=== PATIENT | male | born 1950 | race Caucasian/White ===

== ENCOUNTER 2019-05-01 12:01 | Day surgery (SDC) | payer MEDICARE, MEDICAID ==
[~2019-05-01] VITALS: Ht 172.7 cm; Wt 194.0 kg
[~2019-05-01 12:01] MED LIST: ACET650S13 RC; ASPI81TA52 GT; INSU100I31 SQ; IPRA3AMP31 IH; LATA2.5D2 EACHEYE; METF-436 GT; METO5TAB98 PO; MYL80T GT; PHEN125O3 GT; PHEN32.43 GT; omeprazole GT
[2019-05-01 13:00] VITALS: BP 117/76
[2019-05-01] MEDS ORDERED: iohexol 300 MG/1 ML 50ml polymer ONE (14:07)
[2019-05-01] MEDS ORDERED: LIDOcaine/PRILOcaine 5gm cream TP ONE (14:26)
[2019-05-01] MEDS ORDERED: LIDOcaine 1%/PF 5ML 10 MG/ML VIAL ONE (14:26)
[2019-05-01 14:40] VITALS: BP 118/76
--- NOTE | 2019-05-01 14:40 | NUR ---
Dr Vaughn to bedside, Uli set up sterile field. Dr Vaughn Performed purse string suture placement to Jtube insertion site-pt tolerated well, no complications noted, 1510 4X4 with foam tape applied to site. Pt transferred from unit via private W/C with Acute Care Staff Kamala. Addendum: 05/01/19 at 1622 by Amira Rogers RN Amended: Links added.
[2019-05-01 15:10] VITALS: BP 127/80
== END 2019-05-01 15:45 | disposition home or self-care (01) ==
LOC: SSTAY O 12:01
PROVIDERS: ATTEND Radiology Vascular & Interventional Radiology
DX: Z43.1 Encounter for attention to gastrostomy (principal); K94.23 Gastrostomy malfunction; E11.9 Type 2 diabetes mellitus without complications; I10 Essential (primary) hypertension; R13.12 Dysphagia, oropharyngeal phase
CPT/HCPCS: 49451; 82948; J2001; Q9967

== ENCOUNTER 2019-06-09 08:46 | Day surgery (SDC) | payer MEDICARE, MEDICAID ==
[~2019-06-09 08:46] MED LIST changes: -ACET650S13 RC; -PHEN32.43 GT; +PHEN32.46 GT
[2019-06-09] MEDS ORDERED: iohexol 300 MG/1 ML 50ml polymer ONE (09:29)
[2019-06-09 09:30] VITALS: BP 132/84
== END 2019-06-09 10:25 | disposition home or self-care (01) ==
LOC: SSTAY O 08:46
PROVIDERS: ATTEND Radiology Vascular & Interventional Radiology
DX: K94.13 Enterostomy malfunction (principal); Z79.899 Other long term (current) drug therapy; Z79.82 Long term (current) use of aspirin
CPT/HCPCS: 49451; 74018; B4087; Q9967

== ENCOUNTER 2020-02-13 21:33 | Emergency (ER) | payer MEDICARE, MEDICAID ==
[~2020-02-13] VITALS: Ht 177.8 cm; Wt 82.6 kg
[2020-02-13] MEDS ORDERED: diatrozoate meglu/diatrozoate sod (37% iodine) 120ML oral solution PO ONE (21:50)
--- NOTE | 2020-02-13 23:31 | NUR ---
Spoke with patient's RN at [facility] to inquire more about his baseline. She stated she sent him out d/t concerns of the bleeding at his g tube site. Inquired about patients HR & O2 use and she says he is on 2L O2 at all times at the facility and that his HR flucuates from 80s to 110. Will notify
[2020-02-14] MEDS ORDERED: normal saline 1000ML IV soln IVB ONE (00:15)
[2020-02-14 00:36] LABS: BASOPHILS % (AUTO) 0.3 % (0-1); EOSINOPHILS # (AUTO) 0.3 X10'3 (0-0.9); EOSINOPHILS % (AUTO) 2.2 % (0-6); HEMATOCRIT 35.5 % (42.0-52.0); HEMOGLOBIN 11.7 g/dl (14.0-17.9); LYMPHOCYTES # (AUTO) 2.7 X10'3 (1.1-4.8); LYMPHOCYTES % (AUTO) 21.9 % (21-51); MEAN CORPUSCULAR HEMOGLOBIN 31.9 PG (27.0-31.0); MEAN CORPUSCULAR HGB CONC 32.9 g/dL (33.0-36.5); MEAN CORPUSCULAR VOLUME 96.8 FL (78-98); MEAN PLATELET VOLUME 8.4 FL (7.4-10.4); MONOCYTES # (AUTO) 0.9 X10'3 (0-0.9); MONOCYTES % (AUTO) 7.3 % (2-12); NEUTROPHILS # (AUTO) 8.3 X10'3 (1.8-7.7); NEUTROPHILS % (AUTO) 68.3 % (42-75); PLATELET COUNT 354 X10'3 (140-440); RED BLOOD COUNT 3.66 X10'6 (4.70-6.10); RED CELL DISTRIBUTION WIDTH 15.3 % (11.5-14.5); WHITE BLOOD COUNT 12.1 X10'3 (4.5-11.0)
[2020-02-14 00:45] LABS: PARTIAL THROMBOPLASTIN TIME 26 SECONDS (22-32)
[2020-02-14 00:46] LABS: ALANINE AMINOTRANSFERASE 21 U/L (12-78); ALBUMIN 3.1 G/DL (3.4-5.0); ALBUMIN/GLOBULIN RATIO 0.7 (1.1-1.5); ALKALINE PHOSPHATASE 117 IU/L (46-116); ANION GAP 5 (8-16); ASPARTATE AMINO TRANSFERASE 19 U/L (10-37); BILIRUBIN,TOTAL 0.2 MG/DL (0.1-1.0); BLOOD UREA NITROGEN 29 MG/DL (7-18); BUN/CREATININE RATIO 40.8 (5.4-32.0); CHLORIDE 105 MMOL/L (99-107); CREATININE 0.71 MG/DL (0.60-1.10); GLUCOSE 109 MG/DL (70-104); POTASSIUM 4.3 MMOL/L (3.5-5.1); SODIUM 143 MMOL/L (135-145); TOTAL CARBON DIOXIDE 32.7 MMOL/L (24-32); TOTAL PROTEIN 7.7 G/DL (6.4-8.2); eGFR > 90 ML/MIN
--- NOTE | 2020-02-14 01:21 | NUR ---
CALLED [facility] AT [phone] [employer] [address]
[2020-02-14 01:35] VITALS: BP 142/79
== END 2020-02-14 01:47 ==
LOC: ER 21:34
DX: E86.0 Dehydration (principal); Z93.1 Gastrostomy status; Z87.891 Personal history of nicotine dependence; Z79.82 Long term (current) use of aspirin; Z79.4 Long term (current) use of insulin; Z79.899 Other long term (current) drug therapy
CPT/HCPCS: 36415; 71045; 74019; 80053; 83880; 85025; 85610; 85730; 93005; 96360; 99285; J7030; Q9963

== ENCOUNTER 2020-02-14 08:15 | Emergency (ER) | payer MEDICARE, MEDICAID ==
[~2020-02-14] VITALS: Ht 182.9 cm; Wt 89.5 kg
--- NOTE | 2020-02-14 09:37 | NUR ---
assumed care of pt from Binu STEIN, [facility] will transfer pt back to [facility], unk ETA, report given to All, staff at facility,
[2020-02-14 09:56] VITALS: BP 120/69
== END 2020-02-14 09:58 | disposition home or self-care (01) ==
LOC: ER 08:16
DX: K94.29 Other complications of gastrostomy (principal); Z98.890 Other specified postprocedural states; Z86.69 Personal history of other diseases of the nervous system and sense organs; Z79.82 Long term (current) use of aspirin; Z79.899 Other long term (current) drug therapy
CPT/HCPCS: 99284

== ENCOUNTER 2020-03-28 23:10 | Emergency (ER) | payer MEDICARE, MEDICAID ==
[~2020-03-28] VITALS: Ht 182.9 cm; Wt 104.5 kg
[2020-03-28] MEDS ORDERED: diatrozoate meglu/diatrozoate sod (37% iodine) 120ML oral solution PO ONE (23:20)
--- NOTE | 2020-03-28 23:22 | NUR ---
Air bolus of 10cc administered via GT to check for placement. Positive air gurgling noted. Residual of <10cc apparent. GT flushed with 50cc of water and min drainage noted around the tube. Pt. denies pain/discomfort. MD to order radiology with contras.
[2020-03-28] MEDS ORDERED: diatr meglu/diatrizoate 30ml oral sol.-(3 dose) bottle PO ONE (23:35)
[2020-03-28 23:45] LABS: BASOPHILS # (AUTO) 0.1 X10'3 (0-0.2); BASOPHILS % (AUTO) 0.7 % (0-1); EOSINOPHILS # (AUTO) 0.3 X10'3 (0-0.9); HEMATOCRIT 32.4 % (42.0-52.0); HEMOGLOBIN 10.3 g/dl (14.0-17.9); LYMPHOCYTES # (AUTO) 2.4 X10'3 (1.1-4.8); LYMPHOCYTES % (AUTO) 20.9 % (21-51); MEAN CORPUSCULAR HEMOGLOBIN 27.5 PG (27.0-31.0); MEAN CORPUSCULAR HGB CONC 31.6 g/dL (33.0-36.5); MEAN CORPUSCULAR VOLUME 86.8 FL (78-98); MEAN PLATELET VOLUME 7.8 FL (7.4-10.4); MONOCYTES % (AUTO) 8.6 % (2-12); NEUTROPHILS # (AUTO) 7.7 X10'3 (1.8-7.7); NEUTROPHILS % (AUTO) 66.8 % (42-75); PLATELET COUNT 395 X10'3 (140-440); RED BLOOD COUNT 3.74 X10'6 (4.70-6.10); RED CELL DISTRIBUTION WIDTH 18.2 % (11.5-14.5); WHITE BLOOD COUNT 11.5 X10'3 (4.5-11.0)
[2020-03-28 23:58] LABS: ALANINE AMINOTRANSFERASE 22 U/L (12-78); ALBUMIN 2.9 G/DL (3.4-5.0); ALBUMIN/GLOBULIN RATIO 0.6 (1.1-1.5); ALKALINE PHOSPHATASE 126 IU/L (46-116); ANION GAP 7 (8-16); ASPARTATE AMINO TRANSFERASE 19 U/L (10-37); BILIRUBIN,TOTAL 0.2 MG/DL (0.1-1.0); BLOOD UREA NITROGEN 22 MG/DL (7-18); BUN/CREATININE RATIO 29.7 (5.4-32.0); CALCIUM 8.6 MG/DL (8.5-10.1); CHLORIDE 102 MMOL/L (99-107); CREATININE 0.74 MG/DL (0.60-1.10); GLUCOSE 65 MG/DL (70-104); SODIUM 141 MMOL/L (135-145); TOTAL CARBON DIOXIDE 32.5 MMOL/L (24-32); TOTAL PROTEIN 7.6 G/DL (6.4-8.2); eGFR > 90 ML/MIN
--- NOTE | 2020-03-29 00:11 | NUR ---
[facility]: TRANSPORTATION [facility] TO TAKE HIM BACK- SPEAKING WITH BRIGETTE CASTANON RN
--- NOTE | 2020-03-29 00:19 | NUR ---
CALLED [facility] FOR TRANSPORTATION BACK TO [facility]. WILL BE SENDING SIDEROGRAPHER.
[2020-03-29 00:43] VITALS: BP 131/67
[2020-04-18] MEDS ORDERED: POTA20PA40 GT (04:58)
== END 2020-03-29 01:35 ==
LOC: EDBD → ER 23:11
DX: K94.21 Gastrostomy hemorrhage (principal); Z86.69 Personal history of other diseases of the nervous system and sense organs; Z98.890 Other specified postprocedural states; Z79.82 Long term (current) use of aspirin; Z79.4 Long term (current) use of insulin; Z79.899 Other long term (current) drug therapy
CPT/HCPCS: 36415; 74019; 80053; 85025; 99284; Q9963

== ENCOUNTER 2020-05-04 17:01 | Emergency (ER) | payer OTHER, MEDICARE, MEDICAID ==
[~2020-05-04] VITALS: Ht 177.8 cm; Wt 80.4 kg
[~2020-05-04 17:01] MED LIST changes: +POTA20PA40 GT
[2020-05-04] MEDS ORDERED: diatrozoate meglu/diatrozoate sod (37% iodine) 120ML oral solution PO ONE (17:40)
[2020-05-04] MEDS ORDERED: diatr meglu/diatrizoate 30ml oral sol.-(3 dose) bottle PO ONE (17:50)
--- NOTE | 2020-05-04 18:12 | NUR ---
Spoke with Mavis from [facility] to let her know that the G-tube is properly placed and works well. Let her know that they would need to f/u with his GI doctor for further treatment.
--- NOTE | 2020-05-04 18:14 | NUR ---
[facility] CALLED FOR TRANSPORT. ETA 45 MINUTES.
[2020-05-04 19:43] VITALS: BP 131/80
== END 2020-05-04 19:48 | disposition home or self-care (01) ==
LOC: ER 17:02
DX: Z43.1 Encounter for attention to gastrostomy (principal); E11.9 Type 2 diabetes mellitus without complications; Z76.89 Persons encountering health services in other specified circumstances; Z86.69 Personal history of other diseases of the nervous system and sense organs; Z98.890 Other specified postprocedural states; Z79.82 Long term (current) use of aspirin; Z79.4 Long term (current) use of insulin; Z79.899 Other long term (current) drug therapy
CPT/HCPCS: 74018; 99283; Q9963